=== PATIENT | male | born 1965 | race Caucasian/White ===

== ENCOUNTER 2018-08-08 05:29 | Day surgery (SDC) | payer OTHER ==
[2018-08-08] MEDS ORDERED: CEFAZOLIN 2 GM/50 ML (PMX) 50 ML IVPB (05:30)
[2018-08-08] MEDS ORDERED: SOD CHLORIDE 0.9% 1,000 ML IV (05:30)
[2018-08-08] MEDS ORDERED: SEVOFLURANE 15 MIN (07:00)
[2018-08-08] MEDS ORDERED: ROCURONIUM 50 MG INJ ×2 (07:00→07:36)
[2018-08-08] MEDS ORDERED: LIDOCAINE 2% (SDV) 5 ML INJ (07:00)
[2018-08-08] MEDS ORDERED: PROPOFOL 20 ML (07:34)
[2018-08-08] MEDS ORDERED: CEFAZOLIN 1 GM INJ (08:17)
[2018-08-08] MEDS: POLYMYXIN/BACITRACIN 1L IRRIG IRR ×2 (08:40→09:05)
[2018-08-08] MEDS ORDERED: SUGAMMADEX SODIUM 200 MG/2 ML VIAL IV (08:52)
[2018-08-08] MEDS ORDERED: HYDROCODONE/APAP (5/325) TAB PO (09:00)
[2018-08-08] MEDS: BUPIVACAINE 0.25% (MPF) 30 ML INJ (09:05)
[2018-08-08] MEDS ORDERED: POLYMYXIN/BACITRACIN 1L IRRIG (09:07)
[2018-08-08] MEDS: HYDROmorphONE 1 MG/5 ML IV SYRINGE IV ×2 (09:27→09:42)
[2018-08-08] MEDS ORDERED: MEPERIDINE 25 MG INJ IV (09:30)
[2018-08-08] MEDS ORDERED: DIPHENHYDRAMINE 50 MG INJ IV (09:30)
[2018-08-08] MEDS ORDERED: MIDAZOLAM 1 MG/ML 2 ML INJ IV (09:30)
[2018-08-08] MEDS ORDERED: OXYCODONE/ACETAMINOPHEN (5/325) TAB PO ×2 (09:30)
[2018-08-08] MEDS ORDERED: FENTAnyl 50 MCG/ML VIAL IV ×3 (09:30)
[2018-08-08] MEDS ORDERED: ALBUTEROL 0.083% (NEB) 2.5 MG/3 ML AMP HHN (09:30)
[2018-08-08] MEDS ORDERED: hydrALAzine 20 MG INJ IV (09:30)
[2018-08-08] MEDS ORDERED: LABETALOL HCL 20MG INJ IV (09:30)
[2018-08-08] MEDS ORDERED: EPHEDrine SULFATE 50 MG/5 ML SYG IV (09:30)
[2018-08-08] MEDS ORDERED: HYDROmorphONE 1 MG/5 ML IV SYRINGE IV (09:30)
[2018-08-08] MEDS: ONDANSETRON 4 MG INJ IV ×2 (10:31→11:25)
[2018-08-08] MEDS: METOCLOPRAMIDE 10 MG INJ IV (13:31)
== END 2018-08-08 14:30 | disposition home or self-care (01) ==
LOC: SDS 05:29
DX: K40.30 Unilateral inguinal hernia, with obstruction, without gangrene, not specified as recurrent (principal)
CPT/HCPCS: 49507